=== PATIENT | female | born 1945 | race Caucasian/White ===

== ENCOUNTER → 2020-12-15 | Outpatient (CLI) | payer OTHER, MEDICARE | LOC: SJCVC 10:28 → SJCVCIMAG 10:28 | PROVIDERS: ATTEND Internal Medicine | DX: I07.1 Rheumatic tricuspid insufficiency (principal); R94.31 Abnormal electrocardiogram [ECG] [EKG]; R06.00 Dyspnea, unspecified; I10 Essential (primary) hypertension; E03.9 Hypothyroidism, unspecified; Z79.82 Long term (current) use of aspirin; Z79.899 Other long term (current) drug therapy; Z87.891 Personal history of nicotine dependence; Z82.49 Family history of ischemic heart disease and other diseases of the circulatory system ==

== ENCOUNTER → 2020-12-27 | Outpatient (CLI) | payer OTHER, MEDICARE | LOC: SJCVCIMAG 07:12 | PROVIDERS: ATTEND Internal Medicine | DX: R00.0 Tachycardia, unspecified (principal); I49.3 Ventricular premature depolarization; R07.9 Chest pain, unspecified; R51.9 Headache, unspecified; R06.00 Dyspnea, unspecified; E03.9 Hypothyroidism, unspecified; I10 Essential (primary) hypertension; R53.83 Other fatigue; Z79.82 Long term (current) use of aspirin; Z79.899 Other long term (current) drug therapy; Z87.891 Personal history of nicotine dependence ==

== ENCOUNTER → 2021-02-28 | Outpatient (CLI) | payer OTHER, MEDICARE | LOC: SJCVC 11:16 | PROVIDERS: ATTEND Internal Medicine | DX: R06.00 Dyspnea, unspecified (principal); F41.9 Anxiety disorder, unspecified; F32.9 Major depressive disorder, single episode, unspecified; Z87.891 Personal history of nicotine dependence; Z72.89 Other problems related to lifestyle; Z79.82 Long term (current) use of aspirin; Z79.899 Other long term (current) drug therapy ==

== ENCOUNTER → 2021-02-28 | Outpatient (CLI) | payer OTHER, MEDICARE | LOC: RAD 11:57 | PROVIDERS: ATTEND Internal Medicine | DX: R06.00 Dyspnea, unspecified (principal); K44.9 Diaphragmatic hernia without obstruction or gangrene; K43.9 Ventral hernia without obstruction or gangrene ==

== ENCOUNTER → 2021-03-08 | Outpatient (CLI) | payer OTHER, MEDICARE ==
--- NOTE | ~2021-03-08 | PFR/MVV ---
[facility] [place] [address] PULMONARY FUNCTION MVV/REPORT Name: YASMIN BOYER Room #: REG [facility].#: [id number] Admission: 03/08/21 Attend Phys: Stephane Mayo MD, [facility] Discharge: Date of : 43 Report #: [id number] THIS REPORT FOR: //name// >> SPIROMETRY: (BTPS) Height: 56 in cm Weight: 158 lbs kg Exam Date: 03/08/21 PRE-RX POST-RX PRED BEST %PRED BEST %PRED %CHG FVC LITERS . 1.74 . 2.50 . 143 . 2.40 . 138 . -4 FEV1 LITERS . 1.13 . 1.93 . 171 . 1.98 . 176 . 3 FEV1/FVC % . 71 . 77 . 109 . 83 . 116 . 7 UBN50-90% L/Sec . 1.60 . 1.84 . 115 . 2.38 . 149 . 29 PEF L/SEC . 4.31 . 6.16 . 143 . 5.82 . 135 . -6 FEF50/FIF50 UNITLESS . 2.10 . 3.15 . 150 . 4.26 . 203 . 35 MVV L/Min . . . f 1/Min . . . >> LUNG VOLUMES: (BTPS) PRE-RX POST-RX PRED AVG %PRED AVG %PRED %CHG VC Liters . 1.74 . 2.51 . 144 . . . TLC Liters . 3.15 . 4.07 . 129 . . . RV Liters . 1.35 . 1.56 . 116 . . . RV/TLC % . 42 . 38 . 91 . . . FRC PL Liters . 1.60 . 1.71 . 107 . . . FRC N2 Liters . 1.60 . . . . . ERV Liters . 0.57 . 0.13 . 23 . . . IC Liters . 1.13 . 2.36 . 208 . . . >> DIFFUSION: DLCO ml/Min/mmHg . 16.4 . 14.7 . 90 . . . DL Jamilah ml/Min/mmHg . 16.4 . 14.7 . 90 . . . DLCO/VA ml/Min/mmHg . 3.39 . 3.94 . 116 . . . VA Liters . . 3.72 . . . . COMMENTS: COMMENTS: >> RESISTANCE: [facility] [address] [place] [address] PULMONARY FUNCTION MVV/REPORT Name: YASMIN BOYER Room #: REG [facility].#: [id number] Admission: 03/08/21 Attend Phys: Stephane Mayo MD, [facility] Discharge: Date of : 43 Report #: [id number] PRE-RX PRED AVG %PRED Raw Total cmH20/L/Sec . . 6.90 . Raw Insp cmH20/L/Sec . . 8.89 . Raw Exp cmH20/L/Sec . . 11.79 . Raw cmH20/L/Sec . 2.59 . 2.31 . 89 Gaw L/Sec/cmH20 . 0.384 . 0.434 . 113 sRaw cmH20 Sec . 4.15 . 6.13 . 148 sGaw l/cmH20 Sec . 0.241 . 0.163 . 68 Vtq Liters . . 2.66 . # = OUTSIDE 95% CONFIDENCE INTERVAL CALIBRATION: PRED: 3.00 ACTUAL: EXP 3.01 INSP 3.02 [place] [id number] [place] [id number] >> INTERPRETATION/IMPRESSION: DATE OF SERVICE: 03/08/2021 SPIROMETRY: FEV1 is 1.93 liters (171%), FVC is 2.50 liters (143%), FEV1/FVC ratio is 77%. There is no significant response to bronchodilator therapy. LUNG VOLUMES: Total lung capacity is 4.07 liters (129%), vital capacity is 2.51 liters (144%). RV is 1.56 liters (116%). Diffusing capacity is 90%. IMPRESSION: Pulmonary function studies are essentially normal. There is no significant response to bronchodilator therapy. Lung volumes have mild hyperinflation. Diffusing capacity is normal. By: Milton Andrade MD /nt
== END ==
LOC: PUL 10:45
PROVIDERS: ATTEND Internal Medicine
DX: R06.00 Dyspnea, unspecified (principal); Z20.822 Contact with and (suspected) exposure to COVID-19

== ENCOUNTER → 2021-03-14 | Outpatient (CLI) | payer OTHER, MEDICARE | LOC: SJCVC 10:52 | PROVIDERS: ATTEND Internal Medicine | DX: R06.00 Dyspnea, unspecified (principal); F41.9 Anxiety disorder, unspecified; F32.9 Major depressive disorder, single episode, unspecified; Z87.891 Personal history of nicotine dependence; Z72.89 Other problems related to lifestyle; Z79.82 Long term (current) use of aspirin; Z79.899 Other long term (current) drug therapy ==

== ENCOUNTER → 2021-05-17 | Outpatient (CLI) | payer OTHER, MEDICARE ==
[~2021-05-17] MED LIST: ASA81BEC PO; HYDROCHLOROTHIA25 M1 PO; LEVO-T50 MCG PO; LISINOPRIL20 MG PO; MELOXICAM15 MG PO; MULTI VITAMIN1 EACH PO; PRILOSEC OTC20 MG PO; PROZAC40 MG PO; VITAMIN C500 M1 PO; VITAMIN D350 MC3 PO
--- NOTE | 2021-05-17 16:58 | NUR ---
PT ARRIVED AT 0830 FOR PROCEDURE. AFTER OBTAINING CONSENT AND COVID RESULT STATUS NEG, HURRICAINE SPRAY X 1 TO PT'S THROAT. AT 0910 AM LIDOCAINE JELLY APPLIED TO PT'S RIGHT NOSTRIL. EM CATHETER GUIDED DOWN PT'S RIGHT NOSTRIL TO APPROX 45CM AND TAPED IN PLACE. PT RAFAL PLACEMENT. 10 5ML SALINE SWALLOWS AND 10 VISCOUS SWALLOWS WITH APPLESAUCE PERFORMED. PT RAFAL ALL WELL AND EM CATHETER REMOVED WITHOUT DIFFICULTY AT END OF STUDY. PT DISMISSED AMBULATORY IN STABLE CONDITION AT 1010 POST PROCEDURE AND INFORMED THE STUDY WILL BE READ BY DR BURDICK AND HIS OFFICE WILL INFORM OF RESULTS. VOICES UNDERSTANDING OF ABOVE.
== END | disposition home or self-care (01) ==
LOC: GI 08:17
PROVIDERS: ATTEND Internal Medicine Gastroenterology
DX: R13.10 Dysphagia, unspecified (principal); Z20.822 Contact with and (suspected) exposure to COVID-19